=== PATIENT | female | born 1945 | race Caucasian/White ===

== ENCOUNTER 2018-08-27 11:30 | Inpatient (IN) | payer MEDICARE, OTHER ==
[~2018-08-27] VITALS: Ht 165.1 cm; Wt 68.9 kg
--- NOTE | 2018-08-27 11:49 | NUR ---
hospital lunch tray provided for pt.
--- NOTE | 2018-08-27 13:00 | NUR ---
PATIENT MEDICALLY CLEARED BY DR BOSCH.
--- NOTE | 2018-08-27 13:48 | NUR ---
PT TRANSFERED TO MHU IN STABLE CONDITION. PT REMAINED CALM AND COOPERATIVE THE WHOLE ER STAY.
[2018-08-27] MEDS ORDERED: MAG HYDROX/AL HYDROX/SIMETH 30 ML LIQUID UDC PO PRN (14:45)
[2018-08-27] MEDS ORDERED: LORAZEPAM 1 MG TABLET PO PRN (14:45)
[2018-08-27] MEDS ORDERED: MAGNESIUM HYDROXIDE 30 ML LIQUID UDC PO PRN (14:45)
[2018-08-27] MEDS ORDERED: TEMAZEPAM 7.5 MG CAPSULE PO PRN (14:45)
[2018-08-27 15:38] VITALS: BP 161/65
--- NOTE | 2018-08-27 18:42 | NUR ---
Patient was admitted today from the Emergency Room on a 5150/72 hour hold that is up on 08/28 at 1922. Patient is medically cleared, ekg shows sinus rhythm. Only history reported is GERD, anxiety and dementia. Patient reports no home medications, although some magnesium/phosphorus tabs were taken to the pharmacy. Patient states she takes them as needed for bowel movements. Collected belongings from patient, of which some mendez was counted by 2 RN's and witnessed. Mendez/wallet/phone was taken to supervisor roving department to lock in the hospital safe. Patient admitted for auditory hallucinations, when assessed further patient stated she did not want to talk about it. Patient will often grab and cover her ears and says "stop, stop". No suicidal ideation or plan. Patient is pleasant but she is guarded. Cooperative with nursing care and answers appropriately when prompted, patient is alert and oriented. Patient is currently lying in bed sleeping, as she stated earlier that she could really use some rest.
[2018-08-27 20:41] VITALS: BP 139/69
--- NOTE | 2018-08-28 06:15 | NUR ---
received patient resting comfortably in bed. patient is compliant with medication administration and medical treatment. Patient complained of sore throat int he night. was able to manage the sore throat with pudding. The patient is able to verbalize needs and needs have been met. Will continue to monitor closely and endorse plan of care to oncoming nurse.
--- NOTE | 2018-08-28 07:27 | NUR ---
Received patient lying in bed, patient denies any auditory hallucinations at the moment. Patient states she slept well throughout the night and is well rested. Will continue to monitor patient throughout the shift and implement safety precautions.
[2018-08-28 07:30] VITALS: BP 156/79
[2018-08-28 17:00] VITALS: BP 118/44
--- NOTE | 2018-08-28 18:24 | NUR ---
Patient is lying in bed, safety precautions/checks implemented throughout shift. While observing patient she is seen grasping/covering her ears. Upon assessment 1:1 with patient she is paranoid about nurses recording the conversation. She will not speak loudly but she whispers in conversation. She stated "I am ready to go home, the voices are now gone" and "I am Evangelical and I believe these voices are bad and they target the good people which is why it happened to me." When asked what her plan is if she begins to hear voices again she states she will lean toward confucianism practice and pray. Now she is waiting to speak to psychiatrist because in her own personal opinion she does not believe she needs psych help, she states "This is not the place for me, I do not have issues." Patient is alert and oriented, but very anxious about her stay on the unit and wanting to go home.
[2018-08-28 22:37] VITALS: BP 145/58
[2018-08-29] MEDS: ARIPIPRAZOLE 5 MG TABLET PO SCH ×2 (01:34→20:25)
[2018-08-29 07:30] VITALS: BP 152/62
[2018-08-29 16:00] VITALS: BP 144/58
--- NOTE | 2018-08-29 16:01 | NUR ---
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 Patient observed laying in bed with sheets over face. Patient remains isolative. Assessment: Patient presented with euthymic mood. Patient needs encouragement to socialize and engage with peers. Plan: linen room worker will continue to encourage group attendance as scheduled. linen room worker will continue to provide support to the patient to encourage participation.
--- NOTE | 2018-08-29 18:10 | NUR ---
received patient awake on bed denies SI, denies pain, patient self care ambulatory, upon interaction with the patient verbalizes that she feels that she doesnt need to be in the unit and however she says she feels safe in the hospital since she still hearing voices and feels that they will hurt me, patient denies any suicidal intention, assure the patient that the voices are not real, kept on monitoring throughout the shift
[2018-08-29 21:41] VITALS: BP 159/61
--- NOTE | 2018-08-30 06:22 | NUR ---
GPS: Remain hypervariable and needy to staff. patient resting comfortably in bed. compliant with medication refused shower this morning. The patient is able to verbalize needs and needs have been met. slept 6:30 hrs through the night. Will continue to monitor closely for safety.
[2018-08-30 07:30] VITALS: BP 155/73
--- NOTE | 2018-08-30 11:43 | NUR ---
Firearms Report: TYREL completed and submitted [employer] report for 5250 GD certification.
--- NOTE | 2018-08-30 14:01 | NUR ---
Initial Discharge Instructions: Patient currently lives alone at her mobile home [[address] [address]; ]. Per patient, she would like to return home once discharged. SW Animal Herder and other SW will continue to collaborate with interdisciplinary team to ensure safe and proper discharge planning.
[2018-08-30 16:00] VITALS: BP 152/66
--- NOTE | 2018-08-30 17:42 | NUR ---
Gps/Opener Verifier [employer]-Interacting fairly well, denies any discomfort.
--- NOTE | 2018-08-30 19:50 | NUR ---
RECEIVED PATIENT IN HER ROOM IN BED. SHE IS NOTED AWAKE A/O X 3, SHE IS ABLE TO AMBULATE WITH STEADY GAIT AND ABLE TO MAKE HER NEEDS KNOWN. CALM AND PLEASANT UPON APPROACHED. SHE IS NOTED WITH LOW MOOD, ISOLATIVE AND WITHDRAWN. HOWEVER, SHE DENIES SI AT THIS TIME. SHE STATED THAT SHE CONTINUE HEARING VOICES BUT DENIED VH. WHEN ASKED WHAT THE VOICES SAID, SHE STATED, "I DON'T WANT TO TALK ABOUT IT". PATIENT IS ABLE TO CFS. SHE WAS REASSURED FOR HER SAFETY. WILL CONTINUE TO MONITOR.
[2018-08-30] MEDS: ARIPIPRAZOLE 5 MG TABLET PO SCH (20:32)
[2018-08-31 07:30] VITALS: BP 155/59
[2018-08-31] MEDS: AMLODIPINE 5 MG TABLET PO SCH (09:58)
[2018-08-31 16:15] VITALS: BP 137/45
[2018-08-31 20:00] VITALS: BP 171/66
--- NOTE | 2018-08-31 20:00 | NUR ---
RECEIVED PATIENT IN HER ROOM IN BED. SHE IS NOTED AWAKE A/O X 3 ABLE TO AMBULATE WITH STEADY GAIT AND ABLE TO MAKE HER NEEDS KNOWN. SHE IS NOTED WITH B/P OF 171/66MMHG AND PULSE 70. PATIENT IN NO ACUTE DISTRESS. HOWEVER, SHE NOTED IRRITABLE, SHE STATED, "I HAVE TO CLEAN THE BATHROOM, I HAVE TO DO EVERY THING HERE BY MYSELF". WHEN ASKED IF SHE CONTINUE HEARING VOICES, SHE STATED, "YES" WHEN ASKED WHAT THE VOICES SAID, SHE STATE, "THEY SAY MANY THINGS BUT I DON'T WANT TO TALK ABOUT IT, I ALREADY TOLD YOU". PATIENT WAS REASSURED AND REDIRECTED. SHE DENIES SI/HI. SHE IS ABLE TO CFS. IN ADDITION, ATIVAN 1MG PO PRN WAS GIVEN FOR AGITATION/ANXIETY. PATIENT WAS REASSURED FOR HER SAFETY, WILL CONTINUE TO MONITOR CLOSELY.
[2018-08-31 21:00] VITALS: BP 169/61
--- NOTE | 2018-08-31 21:00 | NUR ---
PATIENT NOTED LESS IRRITABLE LESS ANXIOUS IN NO ACUTE DISTRESS. V/S TAKEN: B/P 169/61MMHG AND PULSE 59BPM. DION PEREZ NP, WHO WAS IN THE UNIT, WAS NOTIFY OF ELEVATED BLOOD PRESSURE, SHE STATED THAT ELEVATED B/P IS MORE LIKELY BEHAVIORAL IN NATURE AND D/T OWNING BEHAVIOR. SHE STATED TO KEEP MONITORING HER B/P AND AND TO CONSUL WITH DR. DESOUZA TOMORROW MORNING. WE WILL CONTINUE TO MONITOR.
[2018-08-31] MEDS: ARIPIPRAZOLE 5 MG TABLET PO SCH (21:01)
[2018-09-01 07:30] VITALS: BP 143/66
[2018-09-01] MEDS: ARIPIPRAZOLE 5 MG TABLET PO SCH ×2 (09:30→20:56)
[2018-09-01] MEDS: AMLODIPINE 5 MG TABLET PO SCH (09:32)
[2018-09-01 16:05] VITALS: BP 95/53
--- NOTE | 2018-09-01 19:50 | NUR ---
RECEIVED IN BED, BUT AMBULATE TO HALLWAYS, PATIENT HAS EPISODES OF PARANOIA, SUSPICIOUS ABOUT HER MEDICATIONS PRESCRIBES BY MD. COMPLAIN OF HEADACHES, WILL MEDICATE FOR PAIN ORDERED.
[2018-09-01 20:00] VITALS: BP 114/70
[2018-09-01] MEDS: ACETAMINOPHEN 325 MG TABLET PO PRN (20:51)
--- NOTE | 2018-09-02 06:01 | NUR ---
PATIENT SLEEP INTERMITTENTLY, NO FURTHER COMPLAIN OF HEADACHES, WITH EPISODES OF PARANOIA, CONT TO MONITOR.
[2018-09-02 07:30] VITALS: BP 148/58
[2018-09-02 08:09] LABS: BASOPHILS % (AUTO) 0.6 % (0.0-2.0); EOSINOPHILS # (AUTO) 0.3 K/uL (0.0-0.7); EOSINOPHILS % (AUTO) 5.9 % (0.0-7.0); HEMOGLOBIN 12.3 g/dL (10.9-14.3); LYMPHOCYTES # (AUTO) 1.3 K/uL (20.0-40.0); LYMPHOCYTES % (AUTO) 27.2 % (20.5-51.5); MEAN CORPUSCULAR HEMOGLOBIN 29.9 uug (24.7-32.8); MEAN CORPUSCULAR HGB CONC 33 g/dL (32.3-35.6); MEAN CORPUSCULAR VOLUME 89.7 fL (75.5-95.3); MONOCYTES # (AUTO) 0.6 K/uL (2.0-10.0); MONOCYTES % (AUTO) 11.9 % (0.0-11.0); NEUTROPHILS # (AUTO) 2.7 K/uL (1.8-8.9); NEUTROPHILS % (AUTO) 54.4 % (38.5-71.5); PLATELET COUNT (AUTO) 220 K/uL (179-408); RED BLOOD CELL COUNT(AUTO) 4.12 MIL/uL (3.63-4.92); WHITE BLOOD COUNT (AUTO) 4.9 K/uL (3.8-11.8)
[2018-09-02 08:23] LABS: THYROID STIMULATING HORMONE 1.349 mIU/mL (0.358-3.740)
[2018-09-02] MEDS: ARIPIPRAZOLE 5 MG TABLET PO SCH ×2 (08:40→21:00)
[2018-09-02] MEDS: AMLODIPINE 5 MG TABLET PO SCH (08:41)
[2018-09-02 08:45] LABS: ALANINE AMINOTRANSFERASE 13 U/L (14-59); ALKALINE PHOSPHATASE 63 U/L (50-136); ASPARTATE AMINOTRANSFERASE 17 U/L (15-37); BILIRUBIN,TOTAL 0.2 mg/dL (0.2-1.0); CARBON DIOXIDE 25 mmol/L (21-32); CHLORIDE 107 mmol/L (98-107); CREATININE 0.7 mg/dL (0.6-1.3); GLUCOSE 84 mg/dL (74-106); MAGNESIUM 1.9 mg/dL (1.8-2.4); PHOSPHOROUS 3.3 mg/dL (2.5-4.9); POTASSIUM 3.9 mmol/L (3.5-5.1); TOTAL PROTEIN, SERUM 6.9 g/dL (6.4-8.2); UREA NITROGEN, BLOOD 15 mg/dL (7-18)
[2018-09-02 16:07] VITALS: BP 149/63
[2018-09-02] MEDS: ACETAMINOPHEN 325 MG TABLET PO PRN (18:28)
[2018-09-02 20:20] VITALS: BP 151/70
--- NOTE | 2018-09-02 20:30 | NUR ---
PATIENT IN BED, ASLEEP BUT EASILY AWAKEN. PATIENT WALKS ON HALLWAYS. PATIENT REFUSED TO TAKE PM MEDICATIONS. PATIENT HAS EPISODES OF PARANOIA, CONT TO REDIRECT BEHAVIOR.
--- NOTE | 2018-09-03 07:25 | NUR ---
PATIENT AWAKE SLEPT MOST OF THE NIGHT, NO BEHAVIORAL BEHAVIOR NOTED AT THIS TIME.
[2018-09-03 07:30] VITALS: BP 151/71
[2018-09-03] MEDS: ARIPIPRAZOLE 5 MG TABLET PO SCH ×2 (09:08→20:53)
[2018-09-03] MEDS: AMLODIPINE 5 MG TABLET PO SCH (09:09)
[2018-09-03] MEDS: ACETAMINOPHEN 325 MG TABLET PO PRN (09:13)
--- NOTE | 2018-09-03 15:10 | NUR ---
DC Planning Note: TYREL Cruz called Fidelia at [facility] [[address] [place] [address]; ]where the pt. currently resides, to gather additional information regarding the conditions of the pt.s mobile home and patients self-care. Per Fidelia, she has observed that the pt. has a female friend who assists the pt. with transportation and often helps the pt. go grocery shopping. In addition, Fidelia expressed that she has seen the pt. throw out most of the food thats purchased a few days later. Fidelia suggested that I contact the parking lot laborer, Real whom might know more information as he has frequent contact with the pt. TYREL Cruz contacted Real who expressed that the pt. often appears well-groomed. Per Real, the pt. keeps her home clean and neat and seems to be inactive throughout the day but is often seen staying up at night. Real [place] and upon returning she appeared to have an easier time dealing with her mental health. TYREL Cruz will continue to collaborate with interdisciplinary team to ensure safe and proper discharge including providing adequate supportive services.
[2018-09-03 16:35] VITALS: BP 143/63
--- NOTE | 2018-09-03 18:12 | NUR ---
: Received patient awake on bed, alert oriented x3-4, denies hearing voices, however patient state that she has headache, gave prn meds , patient medcompliant and been pleasant will continue to monitor
[2018-09-03 20:00] VITALS: BP 159/66
--- NOTE | 2018-09-03 22:03 | NUR ---
awake alert and oriented x3-4 needs attended. VSS compliant with meds. needs attended. no signs of hearing voices nor any hallucinations. kept comfortable. will monitor patient.
--- NOTE | 2018-09-04 06:45 | NUR ---
slept 8 1/2 hrs of sleep.
[2018-09-04 07:30] VITALS: BP 162/67
[2018-09-04] MEDS: ACETAMINOPHEN 325 MG TABLET PO PRN (09:16)
[2018-09-04] MEDS: AMLODIPINE 5 MG TABLET PO SCH (09:16)
[2018-09-04] MEDS: ARIPIPRAZOLE 5 MG TABLET PO SCH ×2 (09:16→20:45)
[2018-09-04 15:57] VITALS: BP 104/44
[2018-09-04 20:19] VITALS: BP 135/52
--- NOTE | 2018-09-05 05:14 | NUR ---
PATIENT ASLEEP BUT EASILY AROUSABLE, PATIENT COOPERATIVE WITH CARE. PATIENT HAS NO BEHAVIORAL ISSUE NOTED AT THIS TIME. CONT TO MONITOR.
[2018-09-05 07:30] VITALS: BP 167/67
[2018-09-05] MEDS: ARIPIPRAZOLE 5 MG TABLET PO SCH ×2 (08:36→20:31)
[2018-09-05] MEDS: AMLODIPINE 5 MG TABLET PO SCH (08:38)
--- NOTE | 2018-09-05 15:47 | NUR ---
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 Patient did not maintain eye contact during group. Patient had to leave group early due to RN asking for her. Assessment: Patient initially refused to attend group. Patient presented to group and seemed calm and pleasant. Patient appeared to be responding to internal stimuli and her thought process seemed somewhat disorganized. Plan: Encourage group attendance as scheduled.
[2018-09-05 16:00] VITALS: BP 147/63
--- NOTE | 2018-09-05 18:09 | NUR ---
RECEIVED PATIENT AWAKE ON BED , PATIENT MED COMPLIANT SELF CARE, AMBULATORY, WOULD WALK TO THE STATION AND ASK FOR HELP, PATIENT HAS GOOD INSIGHT OF HER DISCHARGE PLANNING FOR TOMORROW, PATIENT VERBALIZE THAT SHE WILL GET WHEN SHE GOES HOME WILL CONTINUE MONITOR
[2018-09-05 21:43] VITALS: BP 125/46
[2018-09-06 08:21] VITALS: BP 128/63
--- NOTE | 2018-09-06 08:53 | NUR ---
DC Note: Patient will be discharged back home [[address], [address] [place] [address]; [phone]] via private transportation at 12pm. Spoke with Wanda at [facility] ([phone]) who has arranged and confirmed transportation for this patient. TYREL spoke with patients friend, Real Gordon ([phone]) to alert him about patients discharge. SW left a message for pts friend, Lyric Perkins ([phone]) to alert about pts discharge as well. SW left message for pts brothers Jose ([phone]) and Brayan ([phone]) to inform them about pts discharge. Patient is aware and agreeable with discharge plans. Patient will follow-up with her Primary Care Physician, Ansley Vincent NP on October 01, 2018 @ 3pm [[address] [place] [address]; [phone]]. Patient was provided with a list of Medicare-accepting Psychiatrists in her area and was encouraged to present to [facility] [[address] [place] [address]; [phone]] within 7 days of discharge. Patient refused to allow TYREL to make an appointment for her. A Home Health Order for Medication Management and Quality Assurance Supervisor Chassis Evaluation was faxed to [facility] [ph. [phone]; fax [phone]]. Spoke with Sukh in Intake, and the patient was accepted with a Start of Care on 09/07/18. Patient was given outpatient mental health resources to [facility] ([phone]); [facility] ([phone]), and the National Suicide Prevention Lifeline (National Suicide Prevention Lifeline ).
[2018-09-06] MEDS: ARIPIPRAZOLE 5 MG TABLET PO SCH (08:58)
[2018-09-06 08:59] VITALS: BP 123/68
[2018-09-06] MEDS: AMLODIPINE 5 MG TABLET PO SCH (08:59)
--- NOTE | 2018-09-06 11:45 | NUR ---
PATIENT IS BEING DISCHARGED HOME. TRANSPORTATION PROVIDED. PT IS ALERT AND ORIENTED/ 4. VS ARE STABLE. PT IS COOPERATIVE AND COMPLIANT. DISCHARGE INSTRUCTIONS ARE GIVEN INCLUDING THE FOLLOW UP APPOINTMENT, MEDICATION PRESCRIPTIONS. PT VERBALIZES UNDERSTANDING. ALL BELONGINGS AND VALUABLES ARE RETURNED.
== END 2018-09-06 11:45 | disposition home health service (06) | DRG 885 ==
LOC: ER 11:30 → GPS 13:38
PROVIDERS: ADMIT Psychiatry & Neurology Psychiatry; ATTEND Internal Medicine
DX: F20.0 Paranoid schizophrenia (principal); E87.1 Hypo-osmolality and hyponatremia; I10 Essential (primary) hypertension; F41.9 Anxiety disorder, unspecified; K21.9 Gastro-esophageal reflux disease without esophagitis; Z88.6 Allergy status to analgesic agent; Z88.0 Allergy status to penicillin; Z91.013 Allergy to seafood; G89.29 Other chronic pain; M54.9 Dorsalgia, unspecified
CPT/HCPCS: 36415; 83735; 84100; 84443; 85025; 97110; 97116; 97530; A4663

== ENCOUNTER 2018-11-06 22:01 | Inpatient (IN) | payer MEDICARE, OTHER ==
[~2018-11-06] VITALS: Ht 165.1 cm; Wt 70.8 kg
[2018-11-06] MEDS ORDERED: AMLO5TAB9 PO (23:07)
[2018-11-07] MEDS ORDERED: LORAZEPAM 0.5 MG TABLET PO PRN ×2 (00:15→04:15)
[2018-11-07] MEDS ORDERED: MAG HYDROX/AL HYDROX/SIMETH 30 ML LIQUID UDC PO PRN (00:15)
[2018-11-07] MEDS ORDERED: TEMAZEPAM 7.5 MG CAPSULE PO PRN (00:15)
[2018-11-07] MEDS ORDERED: MAGNESIUM HYDROXIDE 30 ML LIQUID UDC PO PRN (00:15)
[2018-11-07 07:30] VITALS: BP 158/63
[2018-11-07] MEDS ORDERED: LORAZEPAM 1 MG TABLET PO PRN (07:45)
[2018-11-07 16:00] VITALS: BP 148/67
[2018-11-07] MEDS: ARIPIPRAZOLE 5 MG TABLET PO SCH (16:46)
[2018-11-07 20:00] VITALS: BP 133/50
[2018-11-08 07:30] VITALS: BP 131/68
[2018-11-08] MEDS: ARIPIPRAZOLE 5 MG TABLET PO SCH ×2 (09:08→17:06)
[2018-11-08] MEDS: AMLODIPINE 5 MG TABLET PO SCH (09:09)
[2018-11-08 16:11] VITALS: BP 134/55
[2018-11-08 20:00] VITALS: BP 133/56
[2018-11-09 07:30] VITALS: BP 155/62
[2018-11-09] MEDS: ARIPIPRAZOLE 5 MG TABLET PO SCH ×2 (09:01→16:45)
[2018-11-09] MEDS: AMLODIPINE 5 MG TABLET PO SCH (09:02)
[2018-11-09 11:44] LABS: *BILIRUBIN,URIN NEGATIVE (NEGATIVE); *BLOOD, URINE NEGATIVE (NEGATIVE); *CLARITY,URINE SLIGHTLY CLOUDY (CLEAR); *COLOR,URINE YELLOW (YELLOW); *KETONES,URINE NEGATIVE (NEGATIVE); *UROBILINOGEN,URINE 0.2 E.U./dl (NORMAL); LEUKOCYTE ESTERASE ,URINE 3+ (NEGATIVE); NITRITE, URINE NEGATIVE (NEGATIVE); UGLUCOSE NEGATIVE (NEGATIVE)
[2018-11-09 12:07] LABS: BACTERIA,URINE MODERATE /HPF (NONE SEEN); SQUAMOUS EPITHELIAL CELL,UR MODERATE /HPF (NONE SEEN); WBC,URINE 20-50 /HPF (0-3)
[2018-11-09 12:08] LABS: RBC,URINE 0-3 /HPF (0-3)
[2018-11-09 16:00] VITALS: BP 148/50
[2018-11-09] MEDS: CEphaleXIN 500 MG CAPSULE PO SCH (20:29)
[2018-11-09 20:33] VITALS: BP 122/50
[2018-11-10 07:30] VITALS: BP 105/55
[2018-11-10] MEDS: AMLODIPINE 5 MG TABLET PO SCH (09:00)
[2018-11-10] MEDS: ARIPIPRAZOLE 5 MG TABLET PO SCH ×2 (09:01→16:53)
[2018-11-10] MEDS: CEphaleXIN 500 MG CAPSULE PO SCH ×2 (09:04→21:20)
[2018-11-10 16:20] VITALS: BP 106/45
[2018-11-10 21:33] VITALS: BP 137/61
[2018-11-11] MEDS: ACETAMINOPHEN 325 MG TABLET PO PRN ×2 (00:25→22:45)
[2018-11-11 07:30] VITALS: BP 159/59
[2018-11-11] MEDS: ARIPIPRAZOLE 5 MG TABLET PO SCH ×2 (09:49→20:01)
[2018-11-11] MEDS: CEphaleXIN 500 MG CAPSULE PO SCH ×2 (09:49→20:02)
[2018-11-11] MEDS: AMLODIPINE 5 MG TABLET PO SCH (09:50)
[2018-11-11 16:00] VITALS: BP 147/59
[2018-11-11 21:18] VITALS: BP 135/56
[2018-11-12 07:30] VITALS: BP 118/48
[2018-11-12] MEDS: ARIPIPRAZOLE 5 MG TABLET PO SCH ×2 (08:26→20:13)
[2018-11-12] MEDS: CEphaleXIN 500 MG CAPSULE PO SCH ×2 (08:27→20:13)
[2018-11-12] MEDS: AMLODIPINE 5 MG TABLET PO SCH (08:27)
[2018-11-12 16:22] VITALS: BP 134/62
[2018-11-12 20:00] VITALS: BP 161/67
[2018-11-13 07:30] VITALS: BP 137/66
[2018-11-13] MEDS: ARIPIPRAZOLE 5 MG TABLET PO SCH ×2 (08:19→20:50)
[2018-11-13] MEDS: AMLODIPINE 5 MG TABLET PO SCH (08:20)
[2018-11-13] MEDS: CEphaleXIN 500 MG CAPSULE PO SCH ×2 (08:22→20:50)
[2018-11-13] MEDS: ACETAMINOPHEN 325 MG TABLET PO PRN (10:12)
[2018-11-13 15:23] VITALS: BP 115/51
[2018-11-13 19:57] VITALS: BP 134/49
[2018-11-14] MEDS: ACETAMINOPHEN 325 MG TABLET PO PRN ×2 (00:46→20:25)
[2018-11-14 08:05] VITALS: BP 150/55
[2018-11-14] MEDS: CEphaleXIN 500 MG CAPSULE PO SCH (08:40)
[2018-11-14] MEDS: AMLODIPINE 5 MG TABLET PO SCH (08:40)
[2018-11-14 15:15] VITALS: BP 118/52
[2018-11-14] MEDS: ARIPIPRAZOLE 5 MG TABLET PO SCH (20:15)
[2018-11-14 20:38] VITALS: BP 132/56
[2018-11-15 07:30] VITALS: BP 155/67
[2018-11-15] MEDS: AMLODIPINE 5 MG TABLET PO SCH (09:08)
[2018-11-15] MEDS: ACETAMINOPHEN 325 MG TABLET PO PRN (13:07)
[2018-11-15 16:00] VITALS: BP 124/52
[2018-11-15 20:33] VITALS: BP 107/50
[2018-11-15] MEDS: ARIPIPRAZOLE 5 MG TABLET PO SCH ×2 (21:34→22:03)
[2018-11-16 08:51] VITALS: BP 135/57
[2018-11-16] MEDS: AMLODIPINE 5 MG TABLET PO SCH (08:51)
== END 2018-11-16 12:25 | disposition home or self-care (01) | DRG 885 ==
LOC: ER 22:02 → GPS 23:47
PROVIDERS: ADMIT Psychiatry & Neurology Psychiatry; ATTEND Nurse Practitioner Acute Care
DX: F20.0 Paranoid schizophrenia (principal); N39.0 Urinary tract infection, site not specified; K21.9 Gastro-esophageal reflux disease without esophagitis; Z90.710 Acquired absence of both cervix and uterus; Z98.1 Arthrodesis status; I10 Essential (primary) hypertension; F41.0 Panic disorder [episodic paroxysmal anxiety]
CPT/HCPCS: 36415; 93005; A4663